=== PATIENT | female | born 1980 | race Caucasian/White ===

== ENCOUNTER 2017-02-13 23:53 | Emergency (ER) | payer BC ==
--- NOTE | 2017-02-13 23:56 | PDOC ---
History of Present Illness - General Chief Complaint: Pain, Acute Stated Complaint: ABDOMINAL PAIN Time Seen by Provider: 02/13/17 23:56 History Source: Patient Exam Limitations: No Limitations - History of Present Illness Initial Comments: 02/14/17 00:10 This is a 36-year-old female who comes in complaining of right lower quadrant abdominal pain. Patient said it began initially as more periumbilical this afternoon and she had some nausea associated with it and vomited about 5 times. Patient said the pain initially got better and now it is worse and in her right lower quadrant area. Patient said she is trying to get so there is a chance that she could be . Patient's. Is due in one week. Patient otherwise has history of ulcerative colitis. However patient denies any diarrhea and said that this pain is different than her ulcerative colitis pain. PAST MEDICAL HISTORY: As per history of present illness PAST SURGICAL HISTORY: no significant history FAMILY HISTORY: no pertinant history SOCIAL HISTORY: Pt lives with family and is employed. MEDICATIONS: reviewed ALLERGIES: As per nursing notes Review of Systems General: No fevers or chills, no weakness, no weight loss HEENT: No change in vision. No sore throat,. No ear pain CardioVascular: No chest pain or shortness of breath Respiratory:No cough, or wheezing. Gastrointestinal: no nausea, vomitting, diarrhea or constipation, No rectal bleeding Genitourinary: No dysuria, hematuria, or frequency Musculoskeletal: No joint or muscle pain or swelling Neurologic: No headache, vertigo, dizziness or loss of consciousness Psychiatric: nor depression Skin: No rashes or easy bruising Endocrine: no increased thirst or abnormal weight change Allergic: no skin or latex allergy All other systems reviewed and normal Exam: General: Well-nourished well-developed individual, no acute distress HEENT: Throat: Normal, tonsils normal, no erythema or exudate Neck: Supple, no meningeal signs, no lymphadenopathy Eyes::Pupils equal reactive and round, extraocular motion intact Chest: Nontender to palpation Cardiac: S1-S2 normal, regular rate and rhythm, no murmurs rubs or gallops Respiratory: Lungs clear to auscultation bilateral Abdomen: Soft, nondistended, normal bowel sounds, moderate tenderness to palpation right lower quadrant and suprapubic, no guarding or rebound. Extremities: Warm, dry, no cyanosis, clubbing, or edema Skin: No rashes Neuro: Alert and oriented x3, nonfocal exam, grossly intact, normal gait Psych: Normal mood and affect 02/14/17 03:05 Environmental Designer: ([email or web address]) Begin of Report Content Referring Physician: Whitney Mendez Patient Name: Gladis Gonsalez This is a preliminary report by imaging turf sales person Exam: Noncontrast CT abdomen and pelvis Images: [id number] Clinical indication: Abdominal pain. History of ulcerative colitis. Findings: The lung bases are clear. The liver, gallbladder spleen and pancreas all have a normal unenhanced appearance. The adrenal glands are unremarkable. Scarring is noted in the upper pole left kidney. A punctate nonobstructing calculus is noted on the left. The kidneys otherwise have a normal unenhanced appearance. There is no hydronephrosis or hydroureter. The gastrointestinal tract does not appear obstructed. No thickened or dilated bowel is seen. The appendix is a normal appearance. There is no mesenteric infiltration. The uterus is anteverted. The left adnexa is unremarkable. A hypodensity in the right adnexa is ovoid and measures up to 4.5 x 2.8 cm in diameter and contains trace dependent high attenuation consistent with a complex cyst. An additional 15 mm cyst is also noted in the right adnexa. There is a small amount of free fluid in the cul-de-sac. The urinary bladder is unremarkable. No abnormal or pelvic adenopathy is seen. No lytic or blastic destructive osseous lesions are seen. Impression: Adnexal cysts noted on the right with a small amount of free fluid seen in the adnexa and cul-de-sac, compatible with a ruptured cyst.. No inflammatory process identified in the abdomen or pelvis. No abdominal mass, adenopathy or collection seen. THIS DOCUMENT HAS BEEN ELECTRONICALLY SIGNED Alok Whalen M.D. 02/14/2017 02:58 RACQUEL Wilkerson Please call [facility] [phone] ([phone]) with questions. End of Report Content Assessment and plan: This is a 36-year-old female who comes in complaining of right lower quadrant abdominal pain and fever. Patient had an elevated white count and left shift however the rest of her workup was unremarkable. Patient had a CAT scan to rule out appendicitis or any acute intra-abdominal pathology. The appendix was noted is normal and there is no intra-abdominal pathology. However there was a ruptured adnexal cyst with some free fluid in the cul-de- sac that would explain her pain and symptoms. Patient Past History - Past Medical History Allergies/Adverse Reactions: Allergies Allergy/AdvReac Type Severity Reaction Status Date / Time Penicillins Allergy Verified 02/14/17 00:08 Home Medications: Ambulatory Orders Balsalazide Disodium [COLAZAL (Nf)] 750 mg PO TID 02/14/17 Labetalol HCl 50 mg PO DAILY 02/14/17 Mercaptopurine [Purinethol -] 75 mg PO DAILY 02/14/17 ED Treatment Course - LABORATORY CBC & Chemistry Diagram: 02/14/17 00:05 02/14/17 00:05 *DC/Admit/Observation/Transfer Diagnosis at time of Disposition: Pain in pelvis, Ruptured ovarian cyst - Discharge Dispostion Disposition: HOME Condition at time of disposition: Stable Admit: No - Patient Instructions Additional Instructions: Tylenol or Motrin as needed for pain. Follow-up with your OB this week take a copy of your CAT scan with you when you see the OB. Return to the emergency department immediately with ANY new, persistent or worsening symptoms. Continue any medications as previously prescribed by your physician. You should follow up with your primary doctor as soon as possible regarding today's emergency department visit. . Please make sure your doctor reviews the results of your emergency evaluation. Thank you for coming to the Emergency Department today for your care. It was a pleasure to see you today. Please note that your evaluation is INCOMPLETE until you follow-up with your doctor.
[2017-02-14] MEDS ORDERED: SODIUM CHLORIDE 1,000 ML IV ONE ×2 (00:04→00:27)
[2017-02-14 00:33] VITALS: BMI 26.5
[2017-02-14 00:58] LABS: URINE APPEARANCE CLEAR; URINE BILIRUBIN NEGATIVE (NEGATIVE); URINE BLOOD 2+ (NEGATIVE); URINE COLOR LTYELLOW; URINE GLUCOSE (UA) NEGATIVE (NEGATIVE); URINE KETONE NEGATIVE (NEGATIVE); URINE LEUK ESTERASE NEGATIVE (NEGATIVE); URINE NITRITE NEGATIVE (NEGATIVE); URINE PROTEIN NEGATIVE (NEGATIVE); URINE UROBILINOGEN NEGATIVE mg/dL (0.2-1.0)
[2017-02-14 01:00] LABS: BASOPHIL 0.2 % (0-2.0); EOSINOPHIL 0.1 % (0-4.5); MCH 31.3 pg (25.7-33.7); MCHC 34.7 g/dl (32.0-36.0); MEAN CELL VOLUME 90.2 fl (80-96); NEUTROPHILS 86.5 % (42.8-82.8); PLATELET COUNT 275 K/MM3 (134-434); RDW 13.3 % (11.6-15.6)
[2017-02-14 01:14] LABS: URINE MUCUS RARE; URINE RBC 4 /hpf (0-3); URINE WBC 2 /hpf (3-5)
[2017-02-14 01:24] LABS: ALBUMIN 4.6 g/dl (3.4-5.0); ALK PHOS 56 U/L (45-117); ANION GAP 10 (8-16); BILIRUBIN,TOTAL 1.2 mg/dL (0.2-1.0); CO2 25 mmol/L (21-32); CREATININE 0.9 mg/dL (0.55-1.02); GLUCOSE,RANDOM 105 mg/dL (74-106); SGOT/AST 16 U/L (15-37); SGPT/ALT 23 U/L (12-78)
[2017-02-14 02:33] VITALS: BP 137/97; PULSE 92; TEMP 99.1
[2017-02-14] MEDS ORDERED: CEFTRIAXONE 1 GM in DEXTROSE 5%-WATER - 50 ML IVPB ONE (03:11)
[2017-02-14] MEDS ORDERED: cefTRIAXone SODIUM 1 GM VIAL ONE (03:11)
== END 2017-02-14 03:26 | disposition home or self-care (01) ==
LOC: FER 23:53
PROC: 3E03329 Introduction of Other Anti-infective into Peripheral Vein, Percutaneous Approach (ICD-10-PCS; principal; 2017-02-13)
PROC: 3E0337Z Introduction of Electrolytic and Water Balance Substance into Peripheral Vein, Percutaneous Approach (ICD-10-PCS; 2017-02-13)
DX: N83.209 Unspecified ovarian cyst, unspecified side (principal); R10.2 Pelvic and perineal pain
CPT/HCPCS: 36415; 74176-TC; 80053; 81003; 81015; 84703; 85025; 99282-25